=== PATIENT | male | born 1960 | race African-American/Black ===

== ENCOUNTER 2020-08-23 19:45 | Emergency (ER) | payer OTHER ==
[~2020-08-23] VITALS: Ht 180.3 cm; Wt 95.0 kg
[2020-08-23] MEDS ORDERED: VANCOMYCIN 1 G PREMIX 200 ML IV ONE (20:30)
[2020-08-23] MEDS ORDERED: PIPERACILLIN/TAZ 3.375G PREMIX 50 ML IV ONE (20:30)
[2020-08-23 20:55] LABS: BASOPHILS % 0.1 % (0.0-2.0); HEMATOCRIT. 45.1 % (42.0-52.0); HEMOGLOBIN. 15.3 g/dL (14.0-18.0); LYMPHOCYTES % 7.9 % (20.0-50.0); MEAN CORPUSCULAR HEMOGLOBIN 31.3 pg (28.0-32.0); MEAN CORPUSCULAR VOLUME 92.3 fL (80.0-94.0); MEAN PLATELET VOLUME 7.2 fl (7.4-10.4); MONOCYTES % 7.7 % (2.0-8.0); NEUTROPHILS % 84.3 % (40.0-76.0); PLATELET 292 x1000/uL (130-400); RED BLOOD CELL COUNT 4.89 mill/uL (4.7-6.1); RED CELL DISTRIBUTION WIDTH 14.1 % (11.6-14.6)
[2020-08-23 21:01] LABS: CHLORIDE 100 mEq/L (98-107)
[2020-08-23] MEDS ORDERED: IOHEXOL-300 100 ML BOTTLE ONE (23:18)
[2020-08-24] MEDS: AMPICILLIN SOD/SULBACTAM NA 3 G in SODIUM CHLORIDE 0.9% 100 ML IV SCH ×3 (01:28→14:43)
[2020-08-24] MEDS ORDERED: MORPHINE SULFATE 4 MG/ML CPJ (NOT FOR IM USE) IV ONE (02:15)
[2020-08-24] MEDS ORDERED: SUCCINYLCHOLINE CHLORIDE 200MG/10ML IV ONE ×2 (03:15→07:45)
[2020-08-24] MEDS ORDERED: PROPOFOL 10MG/ML 100ML 100 ML IV ONE ×4 (03:15→16:15)
[2020-08-24] MEDS ORDERED: MIDAZOLAM HCL 100 MG in DEXT 5% WATER 80 ML IV ONE (03:15)
[2020-08-24] MEDS ORDERED: ETOMIDATE 2MG/ML 10ML VIAL IV ONE ×2 (03:15→07:45)
[2020-08-24] MEDS: MIDAZOLAM HCL 100 MG in SODIUM CHLORIDE 0.9% 80 ML IV PRN ×2 (03:27→16:24)
[2020-08-24] MEDS ORDERED: DEXAMETHASONE 10 MG/ML VIAL IV ONE (03:45)
[2020-08-24] MEDS ORDERED: AMPICILLIN SOD/SULBACTAM NA 3 G in SODIUM CHLORIDE 0.9% 100 ML IV SCH (09:30)
[2020-08-24] MEDS ORDERED: VANCOMYCIN 1 G PREMIX 200 ML IV SCH (09:30)
[2020-08-24 16:24] VITALS: BP 115/74
== END 2020-08-24 16:40 | disposition short-term general hospital (02) ==
LOC: ER 20:39
DX: K12.2 Cellulitis and abscess of mouth (principal)
CPT/HCPCS: 36415; 70487; 70491; 71045; 76881; 80048; 80076; 83605; 85025; 87040; 93005; 94002; 96365; 96366; 96367; 96368; 96375; 99291; J0295; J0330; J1100; J2250; J2270; J2543; J2704; J3370; J3490; J7050; Q9967; Z7610; J7060; A4315